=== PATIENT | male | born 1955 | race Caucasian/White ===

== ENCOUNTER 2017-04-04 01:02 | Observation (INO) | payer OTHER ==
[~2017-04-04] VITALS: Ht 182.9 cm; Wt 98.4 kg
[2017-04-04] MEDS ORDERED: DULO30 PO (01:48)
[2017-04-04] MEDS ORDERED: EPINEPHRIN0.15 MG/01 IM (01:49)
[2017-04-04] MEDS ORDERED: ENAL20 PO (01:49)
[2017-04-04] MEDS ORDERED: HYDR1TAB94 PO (01:50)
[2017-04-04] MEDS ORDERED: ETOD400 PO (01:50)
[2017-04-04 01:51] LABS: BASOPHILS ABSOLUTE AUTO 0.04 K/mm3 (0.00-0.23); BASOPHILS PERCENT AUTO 1 % (0-2); EOSINOPHILS ABSOLUTE AUTO 0.07 K/mm3 (0.00-0.68); EOSINOPHILS PERCENT AUTO 1 % (0-6); Hematocrit 41.5 % (37.0-53.0); Hemoglobin 13.6 g/dL (13.5-17.5); IMMATURE GRAN ABSOLUTE AUTO 0.02 K/mm3 (0.00-0.10); IMMATURE GRAN PERCENT AUTO 0 % (0-1); LYMPHOCYTES ABSOLUTE AUTO 1.63 K/mm3 (0.84-5.20); LYMPHOCYTES PERCENT AUTO 21 % (21-46); MONOCYTES ABSOLUTE AUTO 0.64 K/mm3 (0.16-1.47); MONOCYTES PERCENT AUTO 8 % (4-13); Mean Corpuscular HGB 28.2 pg (26.0-34.0); Mean Corpuscular HGB Conc 32.8 g/dL (31.5-36.5); Mean Corpuscular Volume 86 fL (80-100); Mean Platelet Volume 9.6 fL (9.1-12.4); NEUTROPHILS ABSOLUTE AUTO 5.51 K/mm3 (1.96-9.15); NEUTROPHILS PERCENT AUTO 70 % (41-73); Platelet Count 268 K/mm3 (150-400); RDW Coefficient Variation 12.4 % (11.7-14.2); RDW Standard Deviation 39.3 fL (35.1-46.3); Red Blood Cell Count 4.82 M/mm3 (4.30-5.90); White Blood Cell Count 7.91 K/mm3 (4.00-11.30)
[2017-04-04] MEDS ORDERED: MORP30 PO (01:51)
[2017-04-04] MEDS ORDERED: METF500 PO (01:51)
[2017-04-04] MEDS ORDERED: TRIA15CR3 TOP (01:51)
[2017-04-04 02:14] LABS: Acetaminophen, Random <2.0 ug/mL (10.0-30.0); Alanine Aminotransfer (ALT/SGP 37 U/L (12-78); Albumin, Blood 4.1 g/dL (3.4-5.0); Albumin/Globulin Ratio 1.2 (0.8-1.8); Alk Phos 71 U/L (50-136); Anion Gap 10 mmol/L (6-16); Aspartate Aminotrans (AST/SGOT 31 U/L (12-37); Bilirubin, Total 0.6 mg/dL (0.1-1.0); Blood Urea Nitrogen 15 mg/dL (8-24); CO2, Blood 27 mmol/L (21-32); Calcium, Blood 9.1 mg/dL (8.5-10.1); Chloride, Blood 100 mmol/L (98-108); Creatinine, Blood 0.94 mg/dL (0.60-1.20); Ethanol (Alcohol), Blood, Med <3 mg/dL; Globulin, Blood 3.3 g/dL (2.2-4.0); Glomerular Filtration Rate >60 (60-); Glucose, Blood 168 mg/dL (70-99); Potassium, Blood 3.8 mmol/L (3.5-5.5); Sodium, Blood 137 mmol/L (136-145); Total Protein, Blood 7.4 g/dL (6.4-8.2)
[2017-04-04 05:15] LABS: U Amphetamine Screen Not Detected; U Barbituate Screen Not Detected; U Benzodiazapine Screen Not Detected; U Buprenorphine Screen Not Detected; U Cannabinoids Screen DETECTED; U Cocaine Screen Not Detected; U Methadone Screen Not Detected; U Methamphetamine Screen Not Detected; U Opiates Screen DETECTED; U Oxycodone Screen Not Detected; U Phencyclidine Screen Not Detected; U Propoxyphene Screen Not Detected
[2017-04-04] MEDS ORDERED: ASPI81CH PO (10:25)
== END 2017-04-05 11:43 | disposition home or self-care (01) ==
LOC: ER 01:02 → EOR 01:03
PROVIDERS: Emergency Medicine
DX: T40.2X1A Poisoning by other opioids, accidental (unintentional), initial encounter (principal); F32.9 Major depressive disorder, single episode, unspecified; F43.20 Adjustment disorder, unspecified; Z91.030 Bee allergy status; Z88.5 Allergy status to narcotic agent; Z88.8 Allergy status to other drugs, medicaments and biological substances; Z79.82 Long term (current) use of aspirin; Z79.899 Other long term (current) drug therapy
CPT/HCPCS: 36415; 80053; 84443; 85025; 99285; G0378; G0480

== ENCOUNTER 2019-07-29 19:28 | Emergency (ER) | payer OTHER, MEDICARE ==
[~2019-07-29] VITALS: Ht 185.4 cm; Wt 104.3 kg
[~2019-07-29 19:28] MED LIST: ASPI81CH PO; DULO30 PO; ENAL20 PO; EPINEPHRIN0.15 MG/01 IM; ETOD400 PO; HYDR1TAB94 PO; METF500 PO; MORP30 PO; TRIA15CR3 TOP
[2019-07-29 20:23] LABS: BASOPHILS ABSOLUTE AUTO 0.03 K/mm3 (0.00-0.23); BASOPHILS PERCENT AUTO 0 % (0-2); EOSINOPHILS ABSOLUTE AUTO 0.08 K/mm3 (0.00-0.68); EOSINOPHILS PERCENT AUTO 1 % (0-6); Hematocrit 40.8 % (37.0-53.0); Hemoglobin 13.1 g/dL (13.5-17.5); IMMATURE GRAN ABSOLUTE AUTO 0.04 K/mm3 (0.00-0.10); IMMATURE GRAN PERCENT AUTO 0 % (0-1); LYMPHOCYTES ABSOLUTE AUTO 1.13 K/mm3 (0.84-5.20); LYMPHOCYTES PERCENT AUTO 10 % (21-46); MONOCYTES ABSOLUTE AUTO 0.77 K/mm3 (0.16-1.47); MONOCYTES PERCENT AUTO 7 % (4-13); Mean Corpuscular HGB 28.4 pg (26.0-34.0); Mean Corpuscular HGB Conc 32.1 g/dL (31.5-36.5); Mean Corpuscular Volume 89 fL (80-100); Mean Platelet Volume 10.2 fL (9.1-12.4); NEUTROPHILS ABSOLUTE AUTO 9.32 K/mm3 (1.96-9.15); NEUTROPHILS PERCENT AUTO 82 % (41-73); Platelet Count 285 K/mm3 (150-400); RDW Coefficient Variation 13.1 % (11.7-14.2); RDW Standard Deviation 42.5 fL (35.1-46.3); Red Blood Cell Count 4.61 M/mm3 (4.30-5.90); White Blood Cell Count 11.37 K/mm3 (4.00-11.30)
[2019-07-29 20:35] LABS: Alanine Aminotransfer (ALT/SGP 25 U/L (12-78); Albumin, Blood 3.7 g/dL (3.4-5.0); Albumin/Globulin Ratio 1.2 (0.8-1.8); Alk Phos 75 U/L (50-136); Anion Gap 6 mmol/L (6-16); Aspartate Aminotrans (AST/SGOT 25 U/L (12-37); Bilirubin, Total 0.4 mg/dL (0.1-1.0); Blood Urea Nitrogen 25 mg/dL (8-24); Bun/Creatinine Ratio 17.7 (12.0-20.0); CO2, Blood 25 mmol/L (21-32); Calcium, Blood 9.5 mg/dL (8.5-10.1); Chloride, Blood 109 mmol/L (98-108); Creatinine, Blood 1.41 mg/dL (0.60-1.20); Glomerular Filtration Rate 54 (60-); Glucose, Blood 169 mg/dL (70-99); Potassium, Blood 4.8 mmol/L (3.5-5.5); Sodium, Blood 140 mmol/L (136-145); Total Protein, Blood 6.7 g/dL (6.4-8.2); Troponin I <0.015 ng/mL (0.000-0.040)
[2019-07-29 20:59] LABS: Source, Urine Clean Catch
[2019-07-29 21:06] LABS: Appearance, Urine Clear (Clear); Blood, Urine 1+ (Neg); Color, Urine Yellow (P-Yellow); Glucose Qualitative, Urine Neg (Neg); Ketones, Urine 1+ (Neg); Leukocyte Esterase, Urine Neg (Neg); Nitrite, Urine Neg (Neg); Protein, Urine 2+ (Neg); Urobilinogen, Urine 1+ (Normal)
[2019-07-29 21:08] LABS: Bilirubin, Urine 3+ (Neg)
[2019-07-29 21:14] LABS: Hyaline Casts 0-2 /lpf (0-2)
[2019-07-29 21:15] LABS: Bacteria Rare /hpf; Mucus Light (0-Heavy); Red Blood Cells, Urine 0-2 /hpf (0-2); Squamous Epithelial Cells Rare /hpf (Few); White Blood Cells, Urine Not Seen /hpf (0-5)
== END 2019-07-29 22:12 | disposition home or self-care (01) ==
LOC: ER 19:28
PROVIDERS: Emergency Medicine
DX: R55 Syncope and collapse (principal); E86.0 Dehydration; Z88.5 Allergy status to narcotic agent; Z88.8 Allergy status to other drugs, medicaments and biological substances; Z91.030 Bee allergy status; Z79.82 Long term (current) use of aspirin; Z79.84 Long term (current) use of oral hypoglycemic drugs; Z79.899 Other long term (current) drug therapy; E11.9 Type 2 diabetes mellitus without complications; Z87.891 Personal history of nicotine dependence; Z85.46 Personal history of malignant neoplasm of prostate
CPT/HCPCS: 71046; 80053; 81001; 84484; 85025; 93005; 93010; 99285-25; G0480

== ENCOUNTER 2021-12-05 19:59 | Emergency (ER) | payer MEDICARE ==
[~2021-12-05] VITALS: Ht 182.9 cm; Wt 111.1 kg
[2021-12-05 20:44] LABS: BASOPHILS ABSOLUTE AUTO 0.03 K/mm3 (0.00-0.23); BASOPHILS PERCENT AUTO 0 % (0-2); EOSINOPHILS ABSOLUTE AUTO 0.09 K/mm3 (0.00-0.68); EOSINOPHILS PERCENT AUTO 1 % (0-6); Hematocrit 41.5 % (37.0-53.0); Hemoglobin 13.5 g/dL (13.5-17.5); IMMATURE GRAN ABSOLUTE AUTO 0.04 K/mm3 (0.00-0.10); IMMATURE GRAN PERCENT AUTO 0 % (0-1); LYMPHOCYTES ABSOLUTE AUTO 0.93 K/mm3 (0.84-5.20); LYMPHOCYTES PERCENT AUTO 10 % (21-46); MONOCYTES ABSOLUTE AUTO 0.73 K/mm3 (0.16-1.47); MONOCYTES PERCENT AUTO 8 % (4-13); Mean Corpuscular HGB Conc 32.5 g/dL (31.5-36.5); Mean Corpuscular Volume 86 fL (80-100); Mean Platelet Volume 9.8 fL (9.1-12.4); NEUTROPHILS ABSOLUTE AUTO 7.13 K/mm3 (1.96-9.15); NEUTROPHILS PERCENT AUTO 80 % (41-73); Platelet Count 308 K/mm3 (150-400); RDW Coefficient Variation 12.7 % (11.7-14.2); RDW Standard Deviation 39.8 fL (35.1-46.3); Red Blood Cell Count 4.82 M/mm3 (4.30-5.90); White Blood Cell Count 8.95 K/mm3 (4.00-11.30)
[2021-12-05 20:55] LABS: Albumin, Blood 3.7 g/dL (3.4-5.0); Albumin/Globulin Ratio 1.1 (0.8-1.8); Bilirubin, Total 0.5 mg/dL (0.1-1.0); Bun/Creatinine Ratio 15.5 (12.0-20.0); Calcium, Blood 8.8 mg/dL (8.5-10.1); Creatinine, Blood 1.42 mg/dL (0.60-1.20); Globulin, Blood 3.3 g/dL (2.2-4.0); Potassium, Blood 4.2 mmol/L (3.5-5.5)
== END 2021-12-05 21:47 | disposition home or self-care (01) ==
LOC: ER 19:59
PROVIDERS: Emergency Medicine
DX: R55 Syncope and collapse (principal); S01.112A Laceration without foreign body of left eyelid and periocular area, initial encounter; E11.9 Type 2 diabetes mellitus without complications; Z87.891 Personal history of nicotine dependence; W22.8XXA Striking against or struck by other objects, initial encounter
CPT/HCPCS: 12011; 71046; 80053; 84484; 85025; 93005; 93010; 99285-25

== ENCOUNTER 2024-01-04 10:59 | Day surgery (SDC) | payer OTHER ==
[~2024-01-04] VITALS: Ht 182.9 cm; Wt 114.3 kg
[2024-01-04] VITALS (8 sets, daily range): BP systolic 125–172; BP diastolic 57–94
[2024-01-04] MEDS ORDERED: OZEMPIC2 MG/0.75 SC (11:15)
[2024-01-04] MEDS ORDERED: XARELTO20 MG PO (11:16)
[2024-01-04] MEDS ORDERED: NS 1,000 ML IV ONE ×3 (11:17→12:29)
[2024-01-04] MEDS ORDERED: Heparin Sodium 1000 Units/ML 10ML MDV ONE ×2 (11:17→13:39)
[2024-01-04] MEDS ORDERED: NS 250 ML IV ONE (11:17)
[2024-01-04] MEDS ORDERED: Etomidate 2MG / ML 10ML Vial ONE (12:36)
[2024-01-04] MEDS ORDERED: Dexamethasone Sod Phos 10 MG/ML 1ML VIAL ONE (12:38)
[2024-01-04] MEDS ORDERED: Vasopressin 20 UNITS/ML 1ML Vial ONE (12:38)
[2024-01-04] MEDS ORDERED: Metoclopramide HCl 5MG / ML 2ML Vial ONE (12:38)
[2024-01-04] MEDS ORDERED: Ondansetron HCl 2 MG / ML 2ML Vial ONE (12:38)
[2024-01-04] MEDS ORDERED: Phenylephrine HCl 100 MCG/ML-NS 10MLSYR (1MG/10ML) ONE (12:39)
[2024-01-04] MEDS ORDERED: FentaNYL Citrate 50 MCG/ML 2 ML Injection ONE (13:29)
[2024-01-04] MEDS ORDERED: NS 500 ML IV ONE ×2 (14:34→15:17)
[2024-01-04] MEDS ORDERED: Sugammadex Sodium 200 MG/2ML SDV (100 MG/ML) IV SCH (14:35)
--- NOTE | 2024-01-04 15:53 | NUR ---
PT RETURNS TO RECOVERY ROOM, EXTUBATED IN LAB AFTER PROCEDURE BY ANESTHESIA. PT. REMAINS DROWSY, BUT ANSWERING SOME QUESTIONS AND FOLLOWING SIMPLE COMMANDS. PT. VSS UPON RETURN TO UNIT. FLOSTASIS IN PLACE TO BILAT POP. NO OOZING, SITES SOFT AND ON TENDER. PT UPDATED BY DR. CHOWDHURY, AND AT BEDSIDE.
[2024-01-04] MEDS ORDERED: Rocuronium Bromide 10 MG/ML 5ML Injection IV ONE (16:44)
[2024-01-04] MEDS ORDERED: Propofol 10mg/ml 20 ml Vial (Procedural) IV ONE (16:44)
[2024-01-04] MEDS ORDERED: Midazolam HCl 1MG / ML 2ML Vial IV ONE (16:44)
--- NOTE | 2024-01-04 17:10 | NUR ---
PT VOIDED USING URINAL 300CC OF CLEAR YELLOW URINE.
--- NOTE | 2024-01-04 17:35 | NUR ---
DR. CHOWDHURY IN TO SEE PT AND TALK WITH HIM AND HIS . LMOM FOR [facility] FOR FOLLOW UP APPOINTMENT FOR PATIENT. PLANS FOR 2 WEEK FOLLOW UP. PT. VSS REMAIN STABLE. FLOSTASIS REMOVED TO BILAT POP, NO OOZING OR BLEEDING AT THIS TIME. SOFT NON TENDER. BANDAGES PLACED TO BOTH SITES. REFRESHMENTS PROVIDED. JAY REMOVED CATHETER INTACT. DISCHARGE INSTRUCTIONS REVIEWED IN DETAIL WITH PT AND PT .
--- NOTE | 2024-01-04 18:06 | NUR ---
Pt dangled at bedside with no issues, then stood with no issue ; however when pt went to take a step a pt left leg site began to bleed heavily. pressure applied to stop bleeding and pt assisted back to bed to lay on side. pressure held to site for 10min, after site assessed and is no longer oozing. pressure dressing applied at this time, pt remains laying on side in bed resting comfortably. vss checked and bp remains wnl.
--- NOTE | 2024-01-04 18:31 | NUR ---
pt up to ambulate after pressure dressing in place. no further oozing on left side however right side has slow ooze. Dr. neil to bedside. pressure dressings applied bilat. no further oozing at this time. pt to go home wiht pressure dressings in place. pt remains at bedside and educated on dressings. pt able to get dressed with out difficulty. no further oozing to dressings. vss upon discharge.
--- NOTE | 2024-01-04 18:35 | NUR ---
pt taken to exit, pt to drive pt home.
== END 2024-01-04 18:45 | disposition home or self-care (01) ==
LOC: MHTC 10:59
DX: I82.402 Acute embolism and thrombosis of unspecified deep veins of left lower extremity (principal); I10 Essential (primary) hypertension; E11.9 Type 2 diabetes mellitus without complications; G89.29 Other chronic pain; Z79.4 Long term (current) use of insulin; Z79.84 Long term (current) use of oral hypoglycemic drugs; Z79.899 Other long term (current) drug therapy; Z87.891 Personal history of nicotine dependence; Z88.5 Allergy status to narcotic agent; Z88.8 Allergy status to other drugs, medicaments and biological substances; Z91.030 Bee allergy status; Z91.038 Other insect allergy status
CPT/HCPCS: 36005; 37187; 37248; 75822; 76937; 82947; C1757; C1769; C1887; C1894; J1100; J1644; J2250; J2371; J2405; J2704; J2765; J3010; J7030; J7040; J7050; Q9967